=== PATIENT | male | born 2005 | race Caucasian/White ===

== ENCOUNTER 2025-07-21 18:14 | Emergency (ER) | payer BC, SELFPAY ==
[2025-07-21 18:25] VITALS: BP 128/83; PULSE 82; RESP 16; TEMP 37.2; O2SAT 95
--- NOTE | 2025-07-21 18:30 | DI.CT_ITS ---
Exam(s) CT ABDOMEN PELVIS W EXAM: CT ABDOMEN PELVIS W CLINICAL HISTORY: LOWER ABDOMINAL PAIN AND BLOODY DIARRHEA TECHNIQUE: Imaging Protocol: Axial computed tomography images with coronal and sagittal reformatted images were created and reviewed. CONTRAST MATERIAL: Intravenous: Omnipaque 350 Contrast volume:75 mL Oral: No COMPARISON: No exams were available for comparison FINDINGS: ABDOMEN: Lung Bases: No acute abnormality. Liver: Normal density. No measurable mass. Portal, Superior Mesenteric, and Splenic Veins: Unremarkable. Gallbladder and Biliary Tract: No radiodense calculus or dilation. Pancreas: Normal density, no abnormal calcifications or inflammatory process. Spleen: Normal. Adrenals: No masses seen. Kidneys: Normal size, contour and axis. No radiodense stones or obstructive uropathy. No masses seen. Abdominal Aorta: Abdominal portion non-dilated. Bowel: There is no evidence of bowel obstruction. There is mild bowel wall thickening in small bowel loops in the left abdomen. This may represent an enteritis. Appendix is unremarkable. Peritoneal Cavity: No ascites, collection or mesenteric inflammatory response. No free air. Lymph Nodes: Within normal limits. Bones: Within normal limits for the patient's age. Soft Tissues: Unremarkable. PELVIS: Bladder: Symmetric distention, no gross wall thickening. Reproductive Organs: Unremarkable as visualized. Lymph Nodes: Within normal limits. Bones: Within normal limits for the patient's age. IMPRESSION: 1. Mild wall thickening of small bowel loops in the left abdomen which may represent an infectious or inflammatory enteritis. 2. Otherwise unremarkable examination. RADIATION DOSE DELIVERED: 334.21mGy.cm Total DLP DATA REPOSITORY: All CT scans at this facility are submitted to the National Radiology Data Registry (NRDR) Dose Index Registry (DIR) with the [employer] (A[employer]). RADIATION OPTIMIZATION: All CT scans at this facility use at least one of these dose optimization techniques: automated exposure control; mA and/or kV adjustment per patient size (includes targeted exams where dose is matched to clinical indication); or iterative reconstruction.
--- NOTE | 2025-07-21 18:36 | W.ED.GENAD ---
Discharge Plan Disposition Patient Disposition: Home Condition: Good Discharge Details Clinical Impression: Gastroenteritis Primary Care Provider: Unknown,Unknown ED Provider: Nilton Palomares Meds and New Rx's Prescriptions: New metronidazole 250 mg tablet 250 mg PO TID Qty: 20 0RF ciprofloxacin HCl [Cipro] 250 mg tablet 250 mg PO BID Qty: 14 0RF Continued sertraline 100 mg tablet 100 mg PO DAILY dextroamphetamine-amphetamine [Adderall XR] 30 mg capsule,extended release 24hr 30 mg PO QAM Discharge Instructions Instructions: Diarrhea, Adult ED Discharge Data Discharge Physician: Nilton Palomares HPI General Date/Time Provider Initiated Documentation: 07/21/25 18:35. HPI Narrative: Patient who presented to the emergency department complaining of bloody diarrhea. States that he was in [facility] claia 1 week ago started having watery diarrhea ever since has not stopped and now he is having bloody diarrhea. Reports crampy abdominal pain denies any nausea denies any vomiting Related Data Home Medications ?Medication ?Instructions ?Recorded ?Confirmed ciprofloxacin HCl 250 mg tablet 250 mg PO BID #14 tabs 07/21/25 (Cipro) dextroamphetamine-amphetamine ER 30 mg PO QAM 07/21/25 07/21/25 30 mg 24hr capsule,extend release (Adderall XR) metronidazole 250 mg tablet 250 mg PO TID #20 tabs 07/21/25 sertraline 100 mg tablet 100 mg PO DAILY 07/21/25 07/21/25 Previous Rx's ?Medication ?Instructions ?Recorded ciprofloxacin HCl 250 mg tablet 250 mg PO BID #14 tabs 07/21/25 (Cipro) metronidazole 250 mg tablet 250 mg PO TID #20 tabs 07/21/25 Allergies Allergy/AdvReac Type Severity Reaction Status Date / Time No Known Allergies Allergy Unverified 07/21/25 18:32 General Stated Complaint: Abd Prob FABRICE: 3 Review of Systems Narrative: Review of Systems: Constitutional: No fevers, chills, sweats Eye: No recent visual problems ENT: No ear pain, nasal congestion, sore throat Respiratory: No shortness of breath, cough Cardiovascular: No Chest pain, palpitations, syncope Gastrointestinal: No nausea, vomiting, Genitourinary: No hematuria Thom/Lymph: Negative for bruising tendency, swollen lymph glands Endocrine: Negative for excessive thirst, excessive hunger Musculoskeletal: No back pain, neck pain, joint pain, muscle pain, decreased range of motion Integumentary: No rash, pruritus, abrasions Neurologic: Alert & oriented X 4 Psychiatric: No anxiety, depression Exam Narrative Exam Narrative: Exam; vitals signs as reported above normal Constitutional; In no acute distress, afebrile General: cooperative, healthy appearing, comfortable and no acute distress HEENT: Head: normal to inspection, no palpable skull fracture and normocephalic atraumatic Eyes: : appearance normal, both eyes and all related structures EOM intact bilaterally Pupils: PERRL : conjunctiva normal Direct ophthalmoscopy: normal light reflex, normal conjunctiva, normal visual acuity Ears: Normal TM, normal external canal Nose: normal no rhinorreha Neck no JVD, supple non tender Neck: normal visual inspection, full ROM and no lymphadenopathy Chest: normal inspection of the chest Respiratory : normal respiratory effort and able to speak in complete sentences no wheezing no rales Cardio Rate: regular rate, rhythm: regular rhythm normal heart sounds S1 and S2 no murmurs, gallops, or rubs GI : normal to inspection, normal bowel sounds, soft, non tender, non distended, no organomegaly Back/Spine/ no CVA tenderness Thoracic/Lumbar Spine: no tenderness or deformities Skin no rashes or lesions Neuro: patient alert oriented x 4 and no meningeal signs, Cranial Nerves: CN's II-XI intact bilaterally, Cognition: normal cognition, Speech: speech normal, Gait: normal gait, Depp tendon reflexes normal 2+ muscle strength 5/5 bilaterally Extremities, no edema, full range of motion, normal strength Course Vital Signs Vital signs: Vital Signs Temperature 37.2 C 07/21/25 18:25 Pulse 82 07/21/25 18:25 Respiratory Rate 16 07/21/25 18:25 Blood Pressure 128/83 07/21/25 18:25 Pulse Oximetry 95 07/21/25 18:25 Temperature 37.2 C 07/21/25 18:25 Temperature Source Tympanic 07/21/25 18:25 Pulse 82 07/21/25 18:25 Respiratory Rate 16 07/21/25 18:25 Blood Pressure 128/83 07/21/25 18:25 Blood Pressure Position Sitting 07/21/25 18:25 Pulse Oximetry 95 07/21/25 18:25 Oxygen Delivery Method Room Air 07/21/25 18:25 Oxygen Flow Rate 0 07/21/25 18:25 Pain Level 0 07/21/25 18:25 Medical Decision Making MDM: Summary: Patient presents emergency department after 10 days of diarrhea and now straining to bloody diarrhea. Labs are unremarkable but with his symptoms and a CAT scan that shows probably gastroenteritis or enteritis he will be treated with Cipro and Flagyl for he could have anterior invasive E. coli or Giardia patient will be discharged home after IV fluids Data Review Analysis All the data on this patient was reviewed by me including laboratory and imaging studies as well as bedside studies performed by me Independent review of Studies Imaging CT scan as reported above Lab: Labs unremarkable Risk Stratification: Patient with gastroenteritis for 10 days after he ate clams who could have E. coli Differential Diagnosis: 1. Bacterial gastroenteritis 2. Viral gastroenteritis 3. Crohn's disease 4. 5. Consultants: Shared disposition: Patient assess disposition will follow according Impression: Lab Data Lab results reviewed: Yes I reviewed the patient's lab results. PFSH All Active Problems (Updated 07/21/25 @ 22:26 by Nilton Palomares MD) Gastroenteritis (Acute) Social History Smoking/Tobacco Use Status: Never Smoking risk assessment performed?: Yes Alcohol Intake: current Alcohol Intake frequency: holidays/special occasions only Substance use type: other Details: ketamine Housing: house Do you feel safe at home: Yes Do you feel safe in your relationship?: Yes
[2025-07-21] MEDS: Lactated Ringers 1,000 ML 1000 ML IV (18:45)
[2025-07-21 18:53] VITALS: BP 128/83; PULSE 82; RESP 16; TEMP 37.2; O2SAT 95
[2025-07-21 18:55] LABS: Abs Immature Grans 0.02 10^3/uL (0.0-0.06); HCT 44.8 % (40.0-50.0); HGB 15.2 g/dL (13.5-17.5); Immature Grans % 0.2 %; MCH 30.2 pg (27.0-33.0); MCHC 33.9 % (32.0-36.0); MCV 89 fL (80-95); MPV 10.3 fL (8.0-11.0); Platelet Count 292 10^3/uL (130-400); RBC 5.03 10^6/uL (4.36-5.78); RDW 12.1 % (11.8-14.1); RDW-SD 39.1 fL; WBC 8.49 10^3/uL (4.4-10.8)
[2025-07-21] MEDS: Omnipaque 350 MG/ML 100 ML BTL IJ (19:02)
[2025-07-21] MEDS: Normal Saline - Diluent 50 ML VIAL IJ (19:02)
[2025-07-21] MEDS: Normal Saline Flush 10 ML SYR IVP (19:02)
[2025-07-21 19:10] LABS: ALT 30 U/L (16-63); AST 23 U/L (15-37); Albumin 4.4 g/dL (3.4-5.0); Alkaline Phosphatase 86 U/L (46-116); Anion Gap 8.9 mmol/L (3-11); BUN 25 mg/dL (7-18); Bilirubin, Total 0.5 mg/dL (0.2-1.0); CO2 30.1 mmol/L (21.0-32.0); Calcium 8.8 mg/dL (8.5-10.1); Chloride 103 mmol/L (98-107); Estimated GFR 88.24 (mL/min/1.73m2); Glucose 84 mg/dL (74-106); Magnesium 2.2 mg/dL (1.8-2.4); Potassium 4.2 mmol/L (3.5-5.1); Sodium 142 mmol/L (136-145); Total Protein 7.5 g/dL (6.4-8.2)
[2025-07-21 19:21] VITALS: BP 134/72; PULSE 79; PULSE 81; RESP 14; O2SAT 98
[2025-07-21 19:30] VITALS: BP 132/80; PULSE 66; RESP 19; O2SAT 98
[2025-07-21 20:01] VITALS: BP 123/72; PULSE 63; RESP 19; O2SAT 99
[2025-07-21 22:50] VITALS: BP 121/66; PULSE 51; RESP 16; TEMP 36.9; O2SAT 98
== END 2025-07-21 23:03 | disposition home or self-care (01) ==
PROVIDERS: Emergency Provider Emergency Medicine Emergency Medical Services
DX: K52.9 Noninfective gastroenteritis and colitis, unspecified (principal)
CPT/HCPCS: 80053; 96360; 99285; 74177; 83735; 85025; 99283; J3490